=== PATIENT | female | born 1980 | race Caucasian/White ===

== ENCOUNTER 2016-09-03 08:45 | Emergency (ER) | payer OTHER ==
[~2016-09-03 08:45] MED LIST: FLEXERIL10 MG PO; TRAMADOL HCL50 M1 PO
== END 2016-09-03 09:15 | disposition home or self-care (01) ==
LOC: CED 08:45 → CFTX 08:45
DX: H10.9 Unspecified conjunctivitis (principal); J45.909 Unspecified asthma, uncomplicated; Z88.0 Allergy status to penicillin; Z88.8 Allergy status to other drugs, medicaments and biological substances
CPT/HCPCS: 99283

== ENCOUNTER 2016-10-14 11:08 | Emergency (ER) | payer OTHER ==
[~2016-10-14] VITALS: Ht 167.6 cm; Wt 95.2 kg
--- NOTE | ~2016-10-14 | EKG ---
PATIENT: SAGRARIO VELÁZQUEZ UNIT #: [id number] Ventricular Rate: 69 BPM Atrial Rate: 69 BPM P-R Interval: 128 ms QRS Duration: 86 ms Q-T Interval: 398 ms QTC Calculation(Bezet): 426 ms P Edgar: 22 degrees Calculated R Edgar: 45 degrees Calculated T Edgar: 9 degrees Diagnosis Line: Normal sinus rhythm Diagnosis Line: Normal ECG Diagnosis Line: No previous ECGs available Diagnosis Line: Confirmed by SONG JULIEN MD ([id number]) on Diagnosis Line: 10/14/2016 3:32:06 PM INTERPRETING MD: ERINN
--- NOTE | ~2016-10-14 | CR72 ---
[facility] A Service of [facility] & [facility] RADIOLOGY TEXT RESULTS PATIENT: SAGRARIO VELÁZQUEZ LOCATION: [facility] : [birth year] UNIT #: [id number] AGE: [address]: Leobardo Jones MD SEX: F ORDER DR: [id number] [facility] [address] [place], [place] [address] [id number] E MR#: [id number] #: [id number] NAME: SAGRARIO VELÁZQUEZ : 1980 SEX: F STUDY DATE/TIME: 10/14/2016 11:56 UNIT: [facility] ROOM: STUDY DESCRIPTION: CR Chest Single View Portable Attending Physician: Leobardo Jones M.D. Ordering Physician: Leobardo Jones M.D. Primary Care Physician: No Primary Care Physician MEDICAL IMAGING REPORT This report is preliminary unless electronic signature is present EXAM Portable chest 10/14/2016 HISTORY 36-year-old woman with cough, short of air, left upper chest tightness. Symptoms past 3 weeks, increasing today. Patient is current smoker. COMPARISON Chest 07/13/2015. FINDINGS AP upright portable chest demonstrates normal stable heart size. Hilar structures and mediastinal contours are preserved. Bilateral lungs are clear. Costophrenic angles are clear. Surgical clips project in the region of the gastroesophageal junction. IMPRESSION Negative chest. No acute finding. Dictated by... Heron Courtney M.D. THIS IS AN ELECTRONICALLY VERIFIED REPORT Heron Courtney M.D. at 10/14/2016 2:44 PM NANCI/cristofer TD: 10/14/2016 13:15 JOB #: [id number] MEDICAL IMAGING REPORT Page 1 of 1 COPY
[2016-10-14 11:33] LABS: BASOPHIL# 0.1 X10e3 (0-0.3); EOSINOPHIL# 0.4 X10e3 (0-0.7); HEMATOCRIT 40.8 % (35.0-45.0); HEMOGLOBIN 13.8 gm/dL (12.0-16.0); LYMPHOCYTE# 2.7 X10e3 (1.0-3.5); LYMPHOCYTE% 33.4 % (17.0-45.0); MEAN CELL VOLUME 90.1 FL (83-96); MEAN CORPUSCULAR HEMOGLOBIN 30.6 PG (28-34); MEAN CORPUSCULAR HGB CONC 33.9 g/dL (30-36); MEAN PLATELET VOLUME 9.6 FL (6.5-11.5); MONOCYTE# 0.5 X10e3 (0-1.0); NEUTROPHIL# 4.5 X10e3 (1.5-7.1); NEUTROPHIL% 54.6 % (40-75); PLATELET COUNT 302 X10e3 (140-420); RED BLOOD COUNT 4.52 X10e (3.90-5.30); RED CELL DISTRIBUTION WIDTH 13.4 % (11.0-15.5); WHITE BLOOD COUNT 8.2 X10e3 (4.0-10.5)
[2016-10-14 11:34] LABS: DIFF IND NO
[2016-10-14 12:02] LABS: POC - CKMB 1.2 ng/mL (0.0-7.9); POC - TROPONIN <0.05 ng/mL (<=0.05)
[2016-10-14 12:06] LABS: ALBUMIN SERUM 4.1 g/dL (3.5-5.0); BILIRUBIN, DIRECT 0.1 mg/dL (0.0-0.2); BILIRUBIN,INDIRECT 0.7 mg/dL (0.0-0.9); BILIRUBIN,TOTAL 0.8 mg/dL (0.2-2.0); BUN/CREATININE RATIO 11.42; CALCIUM SERUM 8.7 mg/dL (8.4-10.2); CREATININE SERUM 0.7 mg/dL (0.6-1.4); GLOM FILT RATE Estimated 111.5 mL/min (>60); POTASSIUM 3.7 mmol/L (3.5-5.1); PROTEIN TOTAL SERUM 6.8 g/dL (6.0-8.3)
[2016-10-14 13:17] LABS: POC - TROPONIN <0.05 ng/mL (<=0.05)
== END 2016-10-14 13:45 | disposition home or self-care (01) ==
LOC: CED 11:08
PROVIDERS: Emergency Medicine
DX: J20.9 Acute bronchitis, unspecified (principal); J45.909 Unspecified asthma, uncomplicated; Z98.890 Other specified postprocedural states; F17.200 Nicotine dependence, unspecified, uncomplicated; Z88.0 Allergy status to penicillin; Z88.1 Allergy status to other antibiotic agents; Z88.8 Allergy status to other drugs, medicaments and biological substances
CPT/HCPCS: 71010; 80048; 80076; 82553; 84484; 84703; 85025; 93005; 99284